=== PATIENT | male | born 1970 | race African-American/Black ===

== ENCOUNTER 2018-03-16 12:05 | Emergency (ER) | payer OTHER ==
[~2018-03-16] VITALS: Ht 167.6 cm; Wt 84.5 kg
[~2018-03-16 12:05] MED LIST: GEMF600T5 PO; HYDR25TA PO; ISOS30TA6 PO; LISI-662 PO; LISINOPRIL; METF-961 PO; METO50 PO; OMEP20 PO; [UNRECOGNIZED DRUG - CODE] PO
[2018-03-16 12:14] VITALS: BP 139/76
[2018-03-16 12:24] LABS: GLUCOSE,POINT OF CARE 202 MG/DL (70-110)
[2018-03-16] MEDS: KETOROLAC TROMETHAMINE 10 MG TABLET PO ONE (14:27)
== END 2018-03-16 14:29 | disposition home or self-care (01) ==
LOC: EMS 12:07
DX: M11.271 Other chondrocalcinosis, right ankle and foot (principal); E11.9 Type 2 diabetes mellitus without complications; I10 Essential (primary) hypertension; I25.2 Old myocardial infarction; Z79.82 Long term (current) use of aspirin; Z79.899 Other long term (current) drug therapy; Z88.0 Allergy status to penicillin